=== PATIENT | female | born 1945 | race Caucasian/White ===

== ENCOUNTER 2017-01-23 13:18 | Outpatient (CLI) | payer MEDICARE ==
--- NOTE | 2017-01-23 14:45 | CT ---
CT OF CHEST WITHOUT CONTRAST ENHANCEMENT CT OF ABDOMEN AND PELVIS WITHOUT CONTRAST ENHANCEMENT: History: Follow up of aneurysm, aortic and pancreatic lesion. Comparison: MRI 09-28-10 FINDINGS: The lungs show some minimal linear scarring in the bases. No pulmonary nodules or pleural effusions a re identified. No significant mediastinal and hilar adenopathy. The ascending aorta is approximately 4.1 cm. Descending thoracic aorta is normal in caliber. CT OF ABDOMEN PERFORMED WITHOUT CONTRAST ENHANCEMENT: A small hiatal hernia is present. The liver and spleen are unremarkable. 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 The gallb ladder region is unremarkable. Right and left adrenal glands and right and left kidneys are normal. No significant periaortic or mes enteric adenopathy. Abdominal aorta is normal in caliber. CT OF PELVIS PERFORMED WITHOUT CONTRAST ENHANCEMENT: There is no adenopathy, mass, or free fluid. The appendix is normal. IMPRESSION: 1. Ascending aorta measures 4.1 cm in AP dimension. 2. Stable tiny 5 mm hypodensity within the pancreatic tail. POS: [facility]
== END 2017-01-23 13:19 | disposition home or self-care (01) ==
LOC: CT 13:18
PROVIDERS: ATTEND Thoracic Surgery (Cardiothoracic Vascular Surgery)
DX: I71.2 Thoracic aortic aneurysm, without rupture (principal)
CPT/HCPCS: 71250; 74177

== ENCOUNTER 2017-04-22 13:35 | Outpatient (CLI) | payer MEDICARE | END 2017-04-22 13:36 | disposition home or self-care (01) | LOC: BICMAMMO 13:35 | PROVIDERS: ATTEND Obstetrics & Gynecology | DX: Z12.31 Encounter for screening mammogram for malignant neoplasm of breast (principal); Z80.3 Family history of malignant neoplasm of breast | CPT/HCPCS: 77063; 77067 ==

== ENCOUNTER 2019-03-17 08:03 | Outpatient (CLI) | payer MEDICARE ==
--- NOTE | 2019-03-17 11:24 | MRI ---
MRI ABDOMEN WITHOUT AND WITH IV CONTRAST: Date: 03/17/2019 HISTORY: Pancreatic mass. Diarrhea. Abdominal pain. COMPARISON: MRI of 09/28/2010. CORRELATION: CT chest/abdomen/pelvis of 01/23/2017. FINDINGS: Tiny hepatic cysts are again seen. The 5 mm lesion in the tail of the pancreas with high T1 signal wi th signal dropout on [id number] and fat suppressed images and no postcontrast enhancement is stable consistent with a tiny lipoma. The spleen, pancreas, adrenal glands, and left kidney are normal. There is a tiny cyst in the inferior pole of the right kidney. No gallstones are seen. No free fluid or lymphadenopathy noted in the abdomen. No evidence of aneurys mal dilatation of the abdominal aorta. The bone marrow signal is unremarkable. There are degenerative changes in the spine. IMPRESSION: 1. Tiny cysts in the liver and right kidney. 2. 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 POS: OFF
== END 2019-03-17 08:04 | disposition home or self-care (01) ==
LOC: SCSMRI 08:03
PROVIDERS: ATTEND Internal Medicine Gastroenterology
DX: D49.0 Neoplasm of unspecified behavior of digestive system (principal); K92.1 Melena; R11.0 Nausea; R10.32 Left lower quadrant pain; R19.7 Diarrhea, unspecified; N28.1 Cyst of kidney, acquired; K76.89 Other specified diseases of liver; D17.5 Benign lipomatous neoplasm of intra-abdominal organs; Z80.0 Family history of malignant neoplasm of digestive organs
CPT/HCPCS: 74183

== ENCOUNTER 2019-04-15 06:42 | Day surgery (SDC) | payer MEDICARE ==
[2019-04-14 10:51] VITALS: BMI 27.4
[2019-04-15] MEDS ORDERED: Lidocaine 1% PF 5 ML VIAL ONE (10:35)
[2019-04-15] MEDS ORDERED: PROPOFOL 200 MG/20 ML VIAL ONE (10:35)
[2019-04-15] MEDS ORDERED: PHENYLEPHRINE-NS 100 MCG/ML 10 ML SYRINGE ONE (10:35)
--- NOTE | 2019-04-15 12:45 | OP ---
DATE OF PROCEDURE: 04/15/2019 PROCEDURE PERFORMED: Esophagogastroduodenoscopy with biopsy. PREMEDICATION: Given by Anesthesiology Department. PREPROCEDURE DIAGNOSES: 1. Persistent nausea. 2. Dyspepsia. 3. Unexplained diarrhea. POSTPROCEDURE DIAGNOSES: 1. Visually normal upper endoscopy. 2. Z-line, regular at 36 cm from incisors. DESCRIPTION OF PROCEDURE: Written consents were obtained prior to procedure. After adequate sedation, forward-viewing endoscope was advanced down the stomach under direct vision to the third portion of duodenum, but the duodenum appeared normal. The bulb appeared normal. Biopsies obtained from the small bowel to exclude celiac disease. The pylorus was patent. The gastric antrum, body, fundus, and cardia all appeared normal. Biopsies obtained from gastric antrum and body for H pylori testing. Retroflexion was normal. The Z-line was located at the 36 cm and appears normal. The distal, mid, and upper esophagus appeared normal. The patient tolerated the procedure well. ASSESSMENT: Visually normal upper endoscopy. PLAN: Await biopsy results of small bowel gastric biopsy. Job ID: [id number]
--- NOTE | 2019-04-15 12:47 | OP ---
DATE OF PROCEDURE: 04/15/2019 PROCEDURE PERFORMED: Colonoscopy with biopsy. PREMEDICATION: Given by Anesthesiology Department. PREPROCEDURE DIAGNOSES: 1. Unexplained diarrhea. 2. Negative stool studies. 3. Left lower quadrant pain, improving. 4. Family history of colon cancer in father. POSTPROCEDURE DIAGNOSES: 1. Redundant sigmoid colon. 2. Otherwise, normal colon exam. DESCRIPTION OF PROCEDURE: Written consents were obtained prior to procedure. After adequate sedation, rectal exam performed was normal. The endoscope was advanced to the cecum. The quality of the bowel prep was good. The sigmoid colon was redundant and tortuous requiring external pressure for scope advancement. The ileocecal valve and appendiceal orifice were visualized and appeared normal. The cecum, ascending colon, hepatic flexure, transverse colon, splenic flexure, descending colon, and rectosigmoid colon all appeared normal. Random biopsies were obtained from the right and the left colon for evaluate for microscopic colitis. Retroflexion in the rectal vault was normal. The colon was then decompressed. The instrument was then fully removed. The patient tolerated the procedure well. ASSESSMENT: Normal colon exam. PLAN: Await biopsy results. Job ID: [id number]
== END 2019-04-15 10:30 | disposition home or self-care (01) ==
LOC: SDC 06:42
PROVIDERS: ATTEND Internal Medicine Gastroenterology
PROC: 0DBE8ZX Excision of Large Intestine, Via Natural or Artificial Opening Endoscopic, Diagnostic (ICD-10-PCS; principal; 2019-04-15)
PROC: 0DB58ZX Excision of Esophagus, Via Natural or Artificial Opening Endoscopic, Diagnostic (ICD-10-PCS; 2019-04-15)
DX: R19.7 Diarrhea, unspecified (principal); K29.50 Unspecified chronic gastritis without bleeding; I25.10 Atherosclerotic heart disease of native coronary artery without angina pectoris; I10 Essential (primary) hypertension; E78.5 Hyperlipidemia, unspecified; Z80.0 Family history of malignant neoplasm of digestive organs; Z79.02 Long term (current) use of antithrombotics/antiplatelets; Z79.82 Long term (current) use of aspirin; Z79.899 Other long term (current) drug therapy; Z88.5 Allergy status to narcotic agent; Z91.041 Radiographic dye allergy status
CPT/HCPCS: 88305; 88312; J2001; J2704

== ENCOUNTER 2022-05-24 10:19 | Outpatient (CLI) | payer MEDICARE | END 2022-05-24 10:20 | disposition home or self-care (01) | LOC: SCSCT 10:19 | PROVIDERS: ATTEND Nurse Practitioner Family | DX: R07.89 Other chest pain (principal) | CPT/HCPCS: 71250 ==

== ENCOUNTER 2022-07-18 08:25 | Outpatient (CLI) | payer MEDICARE | END 2022-07-18 08:26 | disposition home or self-care (01) | LOC: RAD 08:25 | PROVIDERS: ATTEND Internal Medicine Gastroenterology | DX: R13.10 Dysphagia, unspecified (principal); R07.89 Other chest pain | CPT/HCPCS: 74220 ==